=== PATIENT | male | born 1965 | race Caucasian/White ===

== ENCOUNTER 2017-07-27 06:20 | Day surgery (SDC) | payer BC ==
[~2017-07-27] VITALS: Ht 177.8 cm; Wt 74.8 kg
--- NOTE | 2017-07-27 08:26 | NUR ---
07/27/17 0826 Marcelino Howell RESPONDS TO VOICE ON ENTRY TO PACU. DENIES [place] OR PAIN. FALLS ASLEEP EASILY.
--- NOTE | 2017-07-28 11:38 | OR ---
[facility] [address], [place] [address] Signed DATE OF OPERATION: 07/27/2017 SURGEON: Irish Grullon MD PREOPERATIVE DIAGNOSIS: Colon screening. POSTOPERATIVE DIAGNOSIS: Normal colon to cecum. PROCEDURE: Total colonoscopy to cecum. ANESTHESIA: Intravenous sedation, fentanyl 200 mcg, Versed 7 mg. INDICATION: This 52-year-old white man is a patient of Dr. Linda Tom in [place], [place]. He is here for consideration of colon screening. He has no family history of colon cancer and is symptom free having no bleeding, diarrhea or constipation. He understands the risks of bleeding, infection, and perforation related to colonoscopy and wished to proceed. FINDINGS: The prep was excellent. Complete colonoscopy was undertaken to the cecum. Passage through the sigmoid and splenic flexure was somewhat challenging, but was accomplished safely. The cecum was fully intubated. There was no evidence of polyps, diverticular formation, colitis, or cancer. DESCRIPTION OF PROCEDURE: The patient was brought to the endoscopy suite and placed in lateral decubitus position, given intravenous sedation to the point of slurred speech and nystagmus. Digital rectal examination was normal. An Olympus video colonoscope was passed in the rectum and manipulated throughout the colon ultimately intubating the cecum itself. The ileocecal valve appeared normal. The scope was withdrawn from that point and close examination throughout showed no sign of polyp or other abnormality including diverticula formation, colitis, or cancer. Retroflex view of the rectum was normal. Scope was removed and the patient was taken to recovery room in good condition. Electronically Signed By: IRISH GRULLON MD 07/28/17 1138 PATIENT NAME: CANDY BURGESS OPERATIVE REPORT DATE OF : 61 REPORT #: [id number] PHYSICIAN: IRISH GRULLON MD PCP: LINDA TOM MD REPORT IS CONFIDENTIAL AND NOT TO BE RELEASED WITHOUT AUTHORIZATION [facility] [address], [place] [address] Signed CONCLUDING DIAGNOSIS: Normal colon to cecum. PLAN: Repeat colonoscopy in 10 years is recommended, sooner if clinically indicated. He will return to the ongoing care of Dr. Tom. MD ANKUR Damon/ANNI /[id number] cc: Linda Tom MD Copies: LINDA TOM MD ~ Electronically Signed By: IRISH GRULLON MD 07/28/17 1138 PATIENT NAME: CANDY BURGESS OPERATIVE REPORT DATE OF : 61 REPORT #: [id number] PHYSICIAN: IRISH GRULLON MD PCP: LINDA TOM MD REPORT IS CONFIDENTIAL AND NOT TO BE RELEASED WITHOUT AUTHORIZATION
== END 2017-07-27 09:05 | disposition home or self-care (01) ==
LOC: OPS 06:20 → DS 06:20 → OPS 06:45
PROVIDERS: Surgery
PROC: 0DJD8ZZ Inspection of Lower Intestinal Tract, Via Natural or Artificial Opening Endoscopic (ICD-10-PCS; principal; 2017-07-27 06:45)
DX: Z12.11 Encounter for screening for malignant neoplasm of colon (principal)
CPT/HCPCS: 99153; G0500; J2250; J3010; J7120